=== PATIENT | male | born 1990 | race Caucasian/White ===

== ENCOUNTER 2018-04-02 15:47 | Emergency (ER) | payer OTHER | END 2018-04-02 16:58 | disposition home or self-care (01) | LOC: M ED 15:47 | DX: S39.012A Strain of muscle, fascia and tendon of lower back, initial encounter (principal); Y93.B3 Activity, free weights | CPT/HCPCS: 99282 ==

== ENCOUNTER 2019-03-14 16:22 | Emergency (ER) | payer OTHER ==
[~2019-03-14] VITALS: Ht 175.3 cm; Wt 95.6 kg
[~2019-03-14 16:22] MED LIST: NAPR-837 PO; ROBA500T PO; TRAM50TA2 PO
[2019-03-14] MEDS ORDERED: ESCI10TA2 (17:19)
[2019-03-14] MEDS ORDERED: GABA-843 (17:19)
[2019-03-14] MEDS ORDERED: LISI10TA4 (17:20)
[2019-03-14] MEDS ORDERED: METHOCARBAMOL 750 MG TAB PO ONE (18:15)
[2019-03-14] MEDS ORDERED: ROBA750T4 PO (18:16)
[2019-03-14] MEDS ORDERED: LIDO1CRE2 TOP (18:16)
[2019-03-14 18:24] VITALS: BP 147/80
== END 2019-03-14 18:42 | disposition home or self-care (01) ==
LOC: M ED 16:22
DX: M62.838 Other muscle spasm (principal); I10 Essential (primary) hypertension; F17.200 Nicotine dependence, unspecified, uncomplicated; M54.9 Dorsalgia, unspecified; Z86.59 Personal history of other mental and behavioral disorders; Z87.09 Personal history of other diseases of the respiratory system; Z79.899 Other long term (current) drug therapy